=== PATIENT | male | born 1960 ===

== ENCOUNTER 2024-04-18 09:47 | Outpatient (AMB) | payer OTHER, SELFPAY ==
--- NOTE | 2024-04-18 10:14 | MHC.OFFVIS ---
Vital Signs 04/18/24 10:17 Height 6 ft 1 in Weight 280 lb BMI 36.9 Intake Visit Reasons: Left knee discomfort Intake Note: Tyron is a 63 year old male who presents with complaints of intermittent discomfort in his left knee. The patient states that he suffered an injury at work on 03/01/2024. Since that time he states that his left knee discomfort has improved significantly. He did undergo left knee surgery at age 14. He is not sure what type of procedure was performed. He has been able to return to his exercise program. He denies any locking or giving way. Previous x-rays showed questionable avulsion fracture of his tibial spine. 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 Physical Exam Vital Signs: BMI result Body Mass Index 36.9 Const Other: Well-nourished well-developed very friendly male awake alert and oriented x3 in no acute distress Extrem Other: Bilateral lower extremity examination shows good capillary refill, no skin lesions noted, normal sensation light touch Left knee examination shows a minimal effusion, mild crepitus with range of motion, negative Leodan's test, no instability Results Reviewed Results Reviewed: X-rays of the patient's left knee show moderate joint space narrowing most significant in the patellofemoral joint, no acute bony abnormalities noted Assessment & Plan Assessment & Plan (1) Left knee pain: Code(s): M25.562 - Pain in left knee Category: Medical Plan Mr. Acharya presents with intermittent left knee discomfort most likely due to patellofemoral degenerative joint disease. If the patient does have a small avulsion fracture of the tibial spine it is nondisplaced. At this point he does not have any symptoms of instability. He can continue activities as tolerated. We will hold off on an MRI because his symptoms are improving. He will follow up with me on an as-needed basis should his symptoms worsen in any way. Feel free to call me at any time should questions regarding his orthopedic management arise. I spent 22 minutes in reviewing the patient's records and imaging studies, seeing the patient and documenting in the medical record. Orders: Orders XR knee LT 3V 04/18/24 M25.562 - Pain in left knee Coding Level of Care Code New Pt Level 3 (50497) Complex EM visit Add On G2211 Diagnoses Left knee pain M25.562
[2024-04-18 10:17] VITALS: BMI 36.9
--- OUTSIDE RECORDS SUMMARY | 2024-04-18 11:06 | XMS_ITS | Data Portability ---
Author Organization [place] - [facility], Allergy Address [address] [address] Care Team Providers Care Addressograph Operator Name Role Phone LELANDPAWEL Referring Provider [phone] Assessment Encounter Date Assessment Date Assessment LastModified by Organization Details LastModified Time 11/17/2023 11/17/2023 Patient has a Phonak BiCROS that is fairly old. He will need a Tobi or similar. He works in the [employer] and needs to hear well especially during trials. I quoted pricing for Phonak I Sphere 90 R for the right ear and a CROS 1 R for the left ear. He liked the P1 color and would need Speaker 1. He has GIC so has a hearing aid benefit. He understands that we do not direct bill any insurances but will help him with the paperwork for him to summit. We also discussed the possibility of him applying for Care Credit. I will call [facility] [facility] audiology to discuss an appropriate assistive device. Farideh Arteaga MA [facility] krystal Not available 11/17/2023 17:02:50 Plan of Treatment Reminders Order Date Submit Date Provider Last Modified By Organization Details Last Modified Time Details Appointments None recorded. Lab None recorded. Referral None recorded. Procedures None recorded. Surgeries None recorded. Imaging MRI, brain + internal auditory canal, w/wo contrast 2023 024 pola [facility] ([facility]), [address] [facility], [place], [address], 09:53:30 Medication Orders None recorded. Patient TargetsNo targets recorded. Patient InstructionsNo instructions recorded. Reason for Referral None Reported. Results Created Date Observation Date Name Description Value Unit Range Abnormal Flag Note LastModifiedBy Organization Detail LastModifiedTime 09/28/19 24 01/18/2020 imagi ng/di agnos tic resul t No observ ation record ed. [email or web address] Not Available 11:40:54 11/10/19 24 11/01/2023 MRI, brain + brain stem, w/wo contr ast [facility] Access ion Number : [id number] Patien t Name: Tyron Acharya Record Number : [id number] Date of : 1960 Date of Exam: 2023 Referr ing Physic rodriguez: Myranda Trejo [facility] [place] [address], [place] [address] [place] [address] Exam: MR Brain (C-/C+ ) CPT 79630 Room Descri ption: [facility] Verio 3.0T MRI of the brain withou t and with contra st with focus to IACs Clinic al indica tions: Bilate ral hearin g loss for one year, gettin g worse Compar frandy: None. FINDIN GS: The left CP angle is unrema rkable . Again demons trated the approx imatel y 1.5 x 1.4 x 0.4 cm linear band of enhanc ement within the left IAC from the porous acoust ics to the cochle ar apex, consis tent with a vestib ular schwan noma. This is unchan ged as compar ed to the prior study. The right CP angle is unrema rkable . The right 7th and 8th nerve comple x is normal in calibe r and signal intens ities. No abnorm al enhanc ement is noted. The visual ized brain parenc hyma shows no acute pathol ogy or abnorm al enhanc ement. No hydroc ephalu s. There are normal flow-v oids within major intrac ranial vessel s. A small mucus retent ion cyst is seen in the right maxill wayne sinus. IMPRES LOLITA: Stable appear ance of the 1.5 x 0.4 x 0.4 cm vestib ular schwan noma within the left IAC. Electr onical ly Signed By: Wilbert xie [facility] ([facility]) [address] [facility] [place], [address], 11/12/2023 14:30:50 Result Notes None recorded. Problems Name Problem SNOMED Code Status Onset Date Resolution Date Notes Provider Name and Address Organization Details Recorded Time Otalgia of right ear 7985658997 Active 2019 Otalgia, right ear; Note: Date Diagnosed : 0 5:00 PM (H92.01) Not Available [facility] 4 02:31:05 Tinnitus of left ear 84994750750 06 Active 2014 Tinnitus, left ear; Note: Date Diagnosed : 5 10:49 PM (H93.12) Not Available [facility] 4 02:31:16 Dizziness and giddiness 942816767 Active 2014 Dizziness and giddiness ; Note: Date Diagnosed : 5 10:49 PM (R42) Not Available 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 Procedures Surgical History Date Name Laterality Status Provider Name and Address Organization Details Recorded Time 10/22/2023 Air & Speech Audio with Tymps (83037, 70483 & 52082) completed ELIU YIGN [address] [place] [address] [address], [place], [address], [facility] - [facility] 10/22/2023 16:00:21 Imaging Results Imaging Date Name Status LastModified by Organiz ation Details LastModified Time 01/18/2020 imaging/diagn ostic result completed [email or web address] Information not available 09/28/2023 11:40:54 11/01/2023 MRI, brain + brain stem, w/wo contrast completed [facility] ([facility]) [address] [facility], [place], [address], 11/12/2023 14:30:50 Procedure Notes None recorded. Medical Equipment None Reported. Allergies No known drug allergies Medications Name Sig Start Date Stop Date Status Note LastModified by Organization Details LastModified Time amoxicill in 500 mg capsule TAKE 1 CAPSULE BY MOUTH EVERY 8 HOURS FOR 7 DAYS 10/21 completed Not Available Not Available Not Available atorvasta tin 20 mg tablet 10/21 completed Medicati on ID: [id number] B rand Name: atorvast atin Sen d Method: E-Prescr ibed Sub s Allowed: subs OK Medic ationGen ericName : atorvast atin Not Available Not Available Not Available atorvasta tin 10 mg tablet TAKE 1 TABLET BY MOUTH ONCE DAILY active Not Available Not Available No t Available azithromy orestes 250 mg tablet TAKE 2 TABLETS BY MOUTH ON DAY 1, AND THEN TAKE 1 TABLET BY MOUTH ONCE A DAY ON DAY 2 THROUGH DAY 5 10/21 completed Not Available Not Available Not Available glyburide 5 mg tablet 01/17 completed Medicati on ID: [id number] D uration Value: 30 Brand Name: glyburid e Send Method: E-Prescr ibed Sub s Allowed: subs OK Medic ationGen ericName : glyburid e Not Available Not Available Not Available ibuprofen 800 mg tablet TAKE 1 TABLET BY MOUTH THREE TIMES DAILY NEEDED FOR PAIN 10/21 completed Not Available Not Available Not Available valacyclo vir 1 gram tablet TAKE 1 TABLET BY MOUTH THREE TIMES DAILY FOR 7 DAYS 10/21 completed Not Available Not Available Not Available lisinopri l 20 mg tablet TAKE 1 TABLET BY MOUTH ONCE DAILY active Not Available Not Available No t Available sildenafi l 100 mg tablet TAKE 1 TABLET BY MOUTH ONCE DAILY NEEDED 10/21 completed Not Available Not Available Not Available metformin 1,000 mg tablet 10/21 completed Medicati on ID: [id number] B rand Name: metformi n Send Method: E-Prescr ibed Sub s Allowed: subs OK Medic ationGen ericName : metformi n Not Available Not Available Not Available clotrimaz ole-betam ethasone 1 %-0.05 % topical cream 10/21 completed Medicati on ID: [id number] P ericrineetu d By Name: STERLING Quispe nd Name: clotrima zole-bet amethaso ne Send Method: E-Prescr ibed Sub s Allowed: subs OK Speci al Instruct ion: Apply to external ear BID times 2 weeks Me dication GenericN joaquina: clotrima zole-bet amethaso ne Not Available Not Available Not Available lisinopri l 10 mg tablet TAKE 1 TABLET BY MOUTH ONCE DAILY 10/21 completed Not Available Not Available Not Available aspirin 81 mg chewable tablet 01/17 completed Medicati on ID: [id number] B rand Name: aspirin Send Method: E-Prescr ibed Sub s Allowed: subs OK Medic ationGen ericName : aspirin Not Available Not Available Not Available albuterol sulfate HFA 90 mcg/actua tion aerosol inhaler INHALE 2 PUFFS BY MOUTH EVERY 4 TO 6 HOURS NEEDED active Not Available Not Available No t Available lisinopri l 40 mg tablet 01/17 completed Medicati on ID: [id number] D uration Value: 90 Brand Name: lisinopr il Send Method: E-Prescr ibed Sub s Allowed: subs OK Medic ationGen ericName : lisinopr il Not Available Not Available Not Available amoxicill in 875 mg-potass ium clavulana te 125 mg tablet TAKE 1 TABLET BY MOUTH EVERY 12 HOURS FOR 10 DAYS 10/21 completed Not Available Not Available Not Available escitalop willian 10 mg tablet 10/21 completed Medicati on ID: [id number] B rand Name: escitalo pram oxalate Send Method: E-Prescr ibed Sub s Allowed: subs OK Medic ationGen ericName : escitalo pram oxalate Not Available Not Available Not Available tadalafil 20 mg tablet TAKE 1 TABLET BY MOUTH 2 HOURS PRIOR TO INTERCOU RSE active Not Available Not Available No t Available DermOtic Oil 0.01 % ear drops Instill 5 drop into both ears twice a day as directed 10/21 completed Medicati on ID: [id number] P ericrineetu d By Name: STERLING Quispe nd Name: DermOtic Oil Send Method: E-Prescr ibed Sub s Allowed: subs OK Medic ationGen ericName : DermOtic Oil Not Available Not Available Not Available Invokana 300 mg tablet 10/21 completed Medicati on ID: [id number] B rand Name: Invokana Send Method: E-Prescr ibed Sub s Allowed: subs OK Medic ationGen ericName : Invokana Not Available Not Available Not Available Jardiance 25 mg tablet TAKE 1 TABLET BY MOUTH IN THE MORNING active Not Available Not Available No t Available Trulicity 1.5 mg/0.5 mL subcutane ous pen injector 10/21 completed Medicati on ID: [id number] B rand Name: Trulicit y Send Method: E-Prescr ibed Sub s Allowed: subs OK Medic ationGen ericName : Trulicit y Not Available Not Available Not Available Dexcom G6 Sensor device APPLY 1 SENSOR TOPICALL Y AND CHANGE EVERY 10 DAYS TO MONITOR BLOOD GLUCOSE active Not Available Not Available No t Available Dexcom G6 Transmitt er device USE DIRECTED TO TEST BLOOD GLUCOSE ONCE DAILY active Not Available Not Available No t Available Trulicity 3 mg/0.5 mL subcutane ous pen injector INJECT 3 MG SUBCUTAN EOUSLY EVERY WEEK 10/21 completed Not Available Not Available Not Available Trulicity 4.5 mg/0.5 mL subcutane ous pen injector INJECT 4.5 MG (0.5 ML) SUBCUTAN EOUSLY ONCE A WEEK 10/21 completed Not Available Not Available Not Available Mounjaro 2.5 mg/0.5 mL subcutane ous pen injector INJECT 2.5 MG SUBCUTAN EOUSLY ONCE A WEEK active Not Available Not Available No t Available Vitals Date Recorded Body height Body mass index (BMI) Body weight Provider Name and Address Organization Details Last Updated DateTime 10/22/2023 182.88 cm 39.3 kg/m2 717374.79 g Tori Gonzalez [place] - [facility] 10/22/2023 15:42:12 Social History None recorded. Functional Status None recorded. Mental Status None recorded. Family History Nothing Reported Notes:Cancer: Unspecified ty pe of cancer - mother. Cardiovascular: Heart disease in a male, diagnosed at unknown age - brother(s). Heart disease in a female, diagnosed at unknown age - mother. Hypertension - mother. Neurologic: Stroke - mother. Medical History No medical history recorded. Past Encounters Encounter ID Performer Location Encounter Start Date Encounter Closed Date Diagnosis/Indication Diagnosis SNOMED-CT Code Diagnosis ICD10 Code Diagnosis Note [id number] MYRANDA GAYLE MD [facility] [address] [address] 10/22/2023 15:34:06 10/27/2023 13:22:42 Sensorineural hearing loss of bilateral ears 642761386 H90.3 63-year-ol d male with a history of left-sided facial schwannoma which was treated with radiation in 2016 presents today for reassessme nt for worsening hearing and increased dizziness. Ear exam is normal. Audiometri c testing showed stable hearing compared to most recent testing at our office. Medical clearance given for updated BiCROS aid.He is new MRI is not scheduled for next year but given the increased dizziness I did send in order that this should be done sooner. Right Ear:Normal hearing through 1K Hz sloping to a severe SNHL with excellent speech discrimina tion.Type A tympanogra m.Left Ear:Modera te sloping to a profound SNHL with no speech discrimina tion.Type A tympanogra m. FARIDEH ATREAGA MA, CCC-A [facility] [place] [address] [facility], ite [address] [place] [id number] 11/17/2023 14:18:35 11/18/2023 07:26:32 Sensorineural hearing loss of bilateral ears 724322016 H90.3 Health Concerns Section Related Observation LastModified by Organization Detai ls LastModified Time None Recorded Concern Status LastModified by Organization Details LastModified Time None Recorded Advance Directives Directive None Recorded Payers Encounter Date Sequence Insurance Name Policy Number Policy Salazar Covered Member ID Salazar Member ID Guarantor Name 10/22/2023 1 [facility] [id number] 1 Tyron Acharya [id number] Tyron Acharya 11/17/2023 1 [facility] [id number] 1 Tyron Acharya [id number] Tyron Acharya Notes Date Note Type Note Provider Name and Address Organization Details Recorded Time 10/22/2023 text/html 63 yo M present for reassessment. He had shingles last year, no lingering symptoms. Even with hearing aids, hearing decreasing. He did have radiation 2016 for facial schwannoma. He had MRI last year showing stable exam. HE has had more vertigo lately. No recent audiogram, wears bicros hearing aid. MYRANDA GAYLE MD [address] [place] [address], [phone], [facility] - [facility] 10/27/2023 10:44:55 11/17/2023 text/html Reports a longstanding asymmetrical hearing loss. PhonakAudeo V70 with 13 BiCros. Appears to be 7-8 years old; obtained thru [employer]. He also has a Tobi and a 'round thing FARIDEH ARTEAGA MA, CCC-A [address] [place] [address],[address], [address], [place] - [facility] 11/17/2023 17:03:11
--- OUTSIDE RECORDS SUMMARY | 2024-04-18 11:06 | XMS_ITS | Clinical Summary ---
Author Organization [facility] Address [address] [place] [address] Care Team Providers Care Hand Expansion Envelope Maker Name Role Phone Unavailable Primary Care Provider Unavailabl e Social History Tobacco Use Types Packs/Day Years Used Date Smoking Tobacco: Never Assessed Sex and Gender Information Value Date Recorded Sex Assigned at Not on file Legal Sex Male 9:51 AM EST Gender Identity Not on file Sexual Orientation Not on file Plan of Treatment Health Maintenance Due Date Last Done Comments DTaP,Tdap,and Td Vaccines (1 - Tdap) 1977 Pneumococcal Vaccine: 50+ Ye ars (1 of 1 - PCV) 2008 Zoster Vaccines (1 of 2) 2008 Abdominal Aortic Aneurysm (A AA) Screen 01/11/2022 Cholesterol Screening (Lipid Panel) 01/11/2022 Colorectal Cancer Screening: Colonoscopy 01/11/2022 Depression Screening 01/11/2022 Hepatitis C Screening 01/11/2022 Social Influencers of Health Screening 01/11/2022 Falls Risk Assessment 07/03/2023 COVID-19 Vaccine ( - 2023-2 5 season) 2023 Influenza Vaccine (#1) 2023 RSV Immunization Patients 60 + Years Old (1 - 1-dose 75+ series) 2033 HIB Vaccines Aged Out No longer eligi ble based on patient's age to complete this topic HPV Vaccines Aged Out No longer eligi ble based on patient's age to complete this topic Hepatitis A Vaccines Aged Out No long er eligible based on patient's age to complete this topic Hepatitis B Vaccines Aged Out No long er eligible based on patient's age to complete this topic IPV Vaccines Aged Out No longer eligi ble based on patient's age to complete this topic MMR Vaccines Aged Out No longer eligi ble based on patient's age to complete this topic Meningococcal ACWY Vaccine Aged Out N o longer eligible based on patient's age to complete this topic Meningococcal B Vacine Aged Out No lo nger eligible based on patient's age to complete this topic Pneumococcal Vaccine: Pediat rics (0 to 5 Years) and At-Risk Patients (6 to 64 Years) Aged Out No longer eligible b ased on patient's age to complete this topic RSV Immunization Patients Un angely 20 months Aged Out No longer eligible b ased on patient's age to complete this topic Varicella Vaccines Aged Out No longer eligible based on patient's age to complete this topic Advance Directives Documents on File Type Date Recorded Patient Certified Nuclear Medicine Technologist Expl anation Health Care Decision (hx) 03/06/2021 AD BATEMAN DIRECTIVE Health Care Decision (hx) 03/06/2021 AD BATEMAN DIRECTIVE Health Care Decision (hx) 03/06/2021 AD BATEMAN DIRECTIVE
== END 2024-04-18 10:36 | disposition home or self-care (01) ==
LOC: HO.HOS 09:47
PROVIDERS: PCP Internal Medicine; Visit Provider Orthopaedic Surgery
DX: M25.562 Pain in left knee (principal)
CPT/HCPCS: 99203; G2211

== ENCOUNTER → 2024-04-18 09:58 | Outpatient (BNV) | payer OTHER, SELFPAY | PROVIDERS: Visit Provider Radiology Diagnostic Radiology | DX: M25.562 Pain in left knee (principal) | CPT/HCPCS: 73562 ==

== ENCOUNTER 2024-04-18 15:11 | Outpatient (REF) | payer OTHER, SELFPAY ==
--- NOTE | ~2024-04-18 | XR_ITS ---
EXAMINATION: XR KNEE 3 VIEWS LEFT HISTORY: M25.562 - Pain in left knee COMPARISON: There are no prior studies available for comparison. FINDINGS: Three views of the left knee are submitted. Osseous mineralization is normal. There is no fracture or dislocation. There is moderate to severe joint space narrowing involving the patellofemoral compartment. The soft tissues are unremarkable. There is no joint effusion. XR/XR knee LT 3V IMPRESSION: Moderate to severe osteoarthritis of the patellofemoral compartment. Electronically signed by: London Barroso MD 04/18/2024 02:19 PM EDT
--- OUTSIDE RECORDS SUMMARY | 2024-04-19 17:56 | XMS_ITS | Data Portability ---
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 He will need a Tobi or similar. He works in the [employer] and needs to hear well especially during [...] applying for Care Credit. I will call [facility] to discuss an appropriate assistive device. Farideh Arteaga MA [facility] krystal Not available 11/17/2023 17:02:50 Plan of Treatment Reminders Order Date Submit Date Provider Last Modified By Organization Details Last Modified Time Details Appointments None recorded. Lab None recorded. Referral None recorded. Procedures None recorded. Surgeries None recorded. Imaging MRI, brain + internal auditory canal, w/wo contrast 2023 024 pola [facility] ([facility]), [address] [facility], [place], [address], 09:53:30 Medication Orders None recorded. Patient TargetsNo [...] stem, w/wo contr ast [facility] Access ion Number : [id number] Patien t Name: Tyron Acharya Record Number : [id number] Date of : 1960 Date of Exam: 2023 Referr ing Physic rodriguez: Myranda Trejo [facility] [place] [address], [place] [address] [place] [address] Exam: MR Brain (C-/C+ ) CPT 44889 Room Descri ption: [facility] Verio 3.0T MRI of the brain withou [...] Electr onical ly Signed By: Wilbert xie [facility] ([facility]) [address] [facility], [place], [address], 11/12/2023 14:30:50 Result Notes None recorded. Problems Name Problem SNOMED Code Status Onset Date Resolution Date Notes Provider Name and Address Organization Details Recorded Time Otalgia of right ear 5201108232 Active 2019 Otalgia, right ear; Note: Date Diagnosed : 0 5:00 PM (H92.01) Not Available [facility] 4 02:31:05 Tinnitus of left ear 66188333139 06 Active 2014 Tinnitus, left ear; Note: Date Diagnosed : 5 10:49 PM (H93.12) Not Available [facility] 4 02:31:16 Dizziness and giddiness 640793679 Active 2014 Dizziness and giddiness ; Note: Date Diagnosed : 5 10:49 PM (R42) Not Available [facility] 4 02:31:11 Acute non-infec tive otitis externa 092673339 Active 2019 Other noninfect jeannette acute otitis externa, right ear; Note: Date Diagnosed : 0 5:01 PM (H60.591) Not Available [facility] 4 02:31:18 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 Procedures Surgical History Date Name Laterality Status Provider Name and Address Organization Details Recorded Time 10/22/2023 Air [facility] Speech Audio with Tymps (91267, 71658 & 47754) completed ELIU YING [address] [place] [address] [address], [place], [address], [facility] - [facility] 10/22/2023 16:00:21 Imaging Results Imaging Date Name Status LastModified by Organiz ation Details LastModified Time 01/18/2020 imaging/diagn ostic result completed [email or web address] Information not available 09/28/2023 11:40:54 11/01/2023 MRI, brain + brain stem, w/wo contrast completed [facility] ([facility]) [address] [facility], [place], [address], 11/12/2023 14:30:50 Procedure Notes None recorded. Medical [...] mg tablet 10/21 completed Medicati on ID: [id number] B rand Name: atorvast atin Sen d [...] mg tablet 01/17 completed Medicati on ID: [id number] D uration Value: 30 Brand Name: glyburid [...] mg tablet 10/21 completed Medicati on ID: [id number] B rand Name: metformi n Send Method: E-Prescr ibed Sub s Allowed: subs OK Medic ationGen ericName : metformi n Not Available Not Available Not Available clotrimaz ole-betam ethasone 1 %-0.05 % topical cream 10/21 completed Medicati on ID: [id number] P ericrineetu d By Name: STERLING Quispe [...] chewable tablet 01/17 completed Medicati on ID: [id number] B rand Name: aspirin Send Method: E-Prescr ibed Sub s Allowed: subs OK Medic ationGen ericName : aspirin Not Available Not Available Not Available albuterol sulfate HFA 90 mcg/actua tion aerosol inhaler INHALE 2 PUFFS BY MOUTH EVERY 4 TO 6 HOURS NEEDED active Not Available Not Available No t Available lisinopri l 40 mg tablet 01/17 completed Medicati on ID: [id number] D uration Value: 90 Brand Name: lisinopr [...] mg tablet 10/21 completed Medicati on ID: [id number] B rand Name: escitalo pram oxalate Send [...] as directed 10/21 completed Medicati on ID: [id number] P ericrineetu d By Name: STERLING Quispe nd Name: DermOtic Oil Send Method: E-Prescr ibed Sub s Allowed: subs OK Medic ationGen ericName : DermOtic Oil Not Available Not Available Not Available Invokana 300 mg tablet 10/21 completed Medicati on ID: [id number] B rand Name: Invokana Send Method: E-Prescr ibed Sub s Allowed: subs OK Medic ationGen ericName : Invokana Not Available Not Available Not Available Jardiance 25 mg tablet TAKE 1 TABLET BY MOUTH IN THE MORNING active Not Available Not Available No t Available Trulicity 1.5 mg/0.5 mL subcutane ous pen injector 10/21 completed Medicati on ID: [id number] B rand Name: Trulicit y Send Method: [...] Updated DateTime 10/22/2023 182.88 cm 39.3 kg/m2 456824.79 g Tori Gonzalez [place] - [facility] 10/22/2023 15:42:12 Social History None recorded. [...] SNOMED-CT Code Diagnosis ICD10 Code Diagnosis Note [id number] MYRANDA GAYLE MD [facility] of [address] [address] 10/22/2023 15:34:06 10/27/2023 13:22:42 Sensorineural hearing loss of bilateral ears 980614710 H90.3 63-year-ol d male with a history [...] speech discrimina tion.Type A tympanogra m. FARIDEH ARTEAGA [place], CCC-A [facility] [facility] [place] [address] [facility], ite [address] [place] [phone] 11/17/2023 14:18:35 11/18/2023 07:26:32 Sensorineural hearing loss of bilateral ears 369600591 H90.3 Health Concerns Section Related Observation LastModified by Organization Detai ls LastModified Time None Recorded Concern Status LastModified by Organization Details LastModified Time None Recorded Advance Directives Directive None Recorded Payers Encounter Date Sequence Insurance Name Policy Number Policy Salazar Covered Member ID Salazar Member ID Guarantor Name 10/22/[address] [facility] [id number] 1 Tyron Acharya [id number] Tyron Acharya 11/17/[address] [facility] [id number] 1 Tyron Acharya [id number] Tyron Acharya Notes Date Note Type Note [...] wears bicros hearing aid. MYRANDA GAYLE MD [address] [place] [address], [phone], [facility] - [facility] 10/27/2023 10:44:55 11/17/2023 text/html Reports a longstanding asymmetrical hearing loss. PhonakAudeo V70 with 13 BiCros. Appears to be 7-8 years old; obtained thru [employer]. He also has a Tobi and a 'round thing FARIDEH ARTEAGA MA, CCC-A [address] [place] [address],[address], [address], [place] - [facility] 11/17/2023 17:03:11
--- OUTSIDE RECORDS SUMMARY | 2024-04-19 17:56 | XMS_ITS | Clinical Summary ---
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
== END 2024-04-18 15:12 | disposition home or self-care (01) ==
LOC: HO.HOSX 15:11
PROVIDERS: Visit Provider Orthopaedic Surgery
DX: M25.562 Pain in left knee (principal)
CPT/HCPCS: 73562; 99202